=== PATIENT | female | born 1955 | race Two or more races ===

== ENCOUNTER 2017-08-12 18:51 | Emergency (ER) | payer MEDICAID ==
[~2017-08-12] VITALS: Ht 154.9 cm; Wt 52.7 kg
[~2017-08-12 18:51] MED LIST: CIPRO; DOXYCYCLINE; GABAPENTIN; QUETIAPINE; SERTRALINE; TRAZADONE; VALIUM; [UNRECOGNIZED DRUG - OTHER]
[2017-08-12 18:53] VITALS: BP 143/77
== END 2017-08-12 20:06 | disposition home or self-care (01) ==
LOC: ED 19:35
DX: H10.32 Unspecified acute conjunctivitis, left eye (principal); H11.32 Conjunctival hemorrhage, left eye; F17.200 Nicotine dependence, unspecified, uncomplicated; Z90.710 Acquired absence of both cervix and uterus
CPT/HCPCS: 99283